=== PATIENT | female | born 1980 | race Caucasian/White ===

== ENCOUNTER 2025-05-03 01:13 | Emergency (ER) | payer OTHER ==
[~2025-05-03] VITALS: Ht 170.2 cm; Wt 82.0 kg
[2025-05-03] MEDS: EPINEPHrine HCL 0.5 ML NEB ONE (01:26)
[2025-05-03] MEDS: DexAMETHasone SOD PHOS 10MG/1ML VIAL INJ IV ONE (01:30)
[2025-05-03] MEDS: diphenhdrAMINE HCL 50 MG/1 ML VL IV ONE (01:30)
[2025-05-03] MEDS: FAMOTIDINE (10MG/ML) 2ML VL IV ONE (01:30)
--- NOTE | 2025-05-03 01:35 | ED.PDOC ---
SOB-HPI HPI Comments 44-year-old female who came to ER via EMS shortness a breath. Per EMS, patient is a poor informant. Patient was seen/picked up inside her car a she puller out is a for shortness a breath. Patient has an autoimmune disease, and she claims she has been intubated over 20 times. Complaining of sudden onset of shortness a breath, with wheezing. Possible allergic reaction. IO inserted, oxygen given via face mask, given epinephrine and Benadryl and breathing treatments. Patient saturating at 100% on face mask upon arrival. Chief Complaint: Shortness of breath Time Seen by MD: 01:35 Reviewed notes: Nurses Notes Information Source: Patient Mode of Arrival: Ambulatory Severity: Moderate Timing: Hours Duration: Since onset Context: At Rest, With Light Exertion PE Risk Factors: None History of: Anxiety Prehospital treatment: Breathing Tx, Oxygen, Treatment Modifying Factors: Nothing Associated Signs and Symptoms: Wheeze Past Medical History Past Medical History (Other): Autoimmune disease Surgical History: Unobtainable [employer] History: Unobtainable Family History Family History: Unobtainable Social History Smoker: Unobtainable Alcohol: Unobtainable Drugs: Unobtainable Lives In: Unobtainable Unable to Obtain due to: Medical Urgency, Other (In severe respiratory distress) Physical Exam General Appearance: No Apparent Distress, Normal HEENT: Normal ENT Inspection, Pharynx Normal, TMs Normal Neck: Full Range of Motion, Non-Tender, Normal, Normal Inspection Respiratory: Chest Non-Tender, Lungs Clear, No Accessory Muscle Use, No Respiratory Distress, Normal Breath Sounds Cardiovascular: No Edema, No JVD, No Murmur, No Gallop, Normal Peripheral Pulses, Regular Rate/Rhythm Breast Exam: Deferred Gastrointestinal: No Organomegaly, Non Tender, No Pulsatile Mass, Normal Bowel Sounds, Soft Genitalia: Deferred Pelvic: Deferred Rectal: Deferred Extremities: No calf tenderness, Normal capillary refill, Normal inspection, Normal range of motion, Non-tender, No pedal edema Musculoskeletal : Apperance: Normal Neurologic: Alert, reading instructor II-XII nml as Tested, No Motor Deficits, Normal Affect, Normal Mood, No Sensory Deficits Cerebellar Function: Normal Reflexes: Normal Skin: Dry, Normal Color, Warm Lymphatic: No Adenopathy Was a procedure done? Was a procedure done?: No Differential Dx Differential Diagnosis: Anxiety, Asthma, COPD, Hyperventilation, Myocardial infarction, Panic Attack, Pneumonia, Respiratory Distress X-Ray, Labs, Meds, VS Vital Signs Date Time Temp Pulse Resp B/P (MAP) Pulse Ox O2 Delivery O2 Flow Rate FiO2 05/03/25 02:13 130 24 100 Simple Mask* 10 99 05/03/25 01:59 98.7 130 24 155/89 (111) 100 98.7 05/03/25 01:38 123 05/03/25 01:22 26 97 Room Air* 0 21 05/03/25 01:13 98.1 135 32 156/94 (114) 100 98.1 Lab Test 05/03/25 05:07 05/03/25 03:05 05/03/25 01:50 05/03/25 01:47 Range/Units Blood Gas Specimen Type Venous Venous Blood Gas Sample Site Vbg - n/a Vbg - n/a Blood Gas Patient Temperature 37.0 37.0 Arterial Blood Date Drawn [id number] Gal Test N/a N/a Venous Blood pH 7.333 7.290 L 7.320-7.430 Venous Blood pCO2 at Patient Temp 33.1 L 30.4 L 38.0-54.0 mmHg Venous Blood pO2 at Patient Temp 52.4 H 47.4 23.0-48.0 mmHg Venous Blood HCO3 17.2 L 14.3 L 22.0-29.0 mmol/L Venous Blood Base Excess -7.6 L -10.8 L -2.0-3.0 mmol/L Blood Gas Modality Room air Room air FiO2 % 21.0 21.0 Troponin I High Sensitivity 4 < 3 L </=34 ng/L White Blood Count 11.5 H 4.4-10.8 10^3/uL Red Blood Count 4.60 4.0-5.20 10^6/uL Hemoglobin 14.2 12.2-16.2 g/dL Hematocrit 42.5 36.0-46.0 % Mean Corpuscular Volume 92.4 80.0-100.0 fL Mean Corpuscular Hemoglobin 30.8 28.0-32.0 pg Mean Corpuscular Hemoglobin Concent 33.4 32.0-36.0 g/dL Red Cell Distribution Width 13.6 11.8-14.3 % Platelet Count 304 140-450 10^3/uL Mean Platelet Volume 9.1 6.9-10.8 fL Neutrophils (%) (Auto) 47.7 37.0-80.0 % Lymphocytes (%) (Auto) 45.5 10.0-50.0 % Monocytes (%) (Auto) 5.6 0.0-12.0 % Eosinophils (%) (Auto) 0.8 0.0-7.0 % Basophils (%) (Auto) 0.4 0.0-2.0 % Neutrophils # (Auto) 5.5 1.6-8.6 10 ^3/uL Lymphocytes # (Auto) 5.2 0.4-5.4 10 ^3/uL Monocytes # (Auto) 0.6 0-1.3 10 ^3/uL Eosinophils # (Auto) 0.1 0-0.8 10 ^3/uL Basophils # (Auto) 0 0-0.2 10 ^3/uL Nucleated Red Blood Cells 0.2 % Sodium Level 140 136-145 mmol/L Potassium Level 2.5 *L 3.5-5.1 mmol/L Chloride Level 106 98-107 mmol/L Carbon Dioxide Level 15 L 20-31 mmol/L Anion Gap 19 H 5-15 Blood Urea Nitrogen < 5 L 9-23 mg/dL Creatinine 0.85 0.550-1.02 mg/dL Glomerular Filtration Rate Calc 87 >90 mL/min BUN/Creatinine Ratio 5.9 L 10.0-20.0 Serum Glucose 191 H 74-106 mg/dL Calcium Level 8.7 8.7-10.4 mg/dL Total Bilirubin 0.4 0.2-1.0 mg/dL Aspartate Amino Transferase (AST) 25 <34 U/L Alanine Aminotransferase (ALT) 34 7-40 U/L Alkaline Phosphatase 60 46-116 U/L B-Type Natriuretic Peptide 9.62 0-100 pg/mL Total Protein 7.5 5.7-8.2 g/dL Albumin 5.0 H 3.2-4.8 g/dL Current Medications Medications (Trade) Dose Ordered Sig/Peace Route Start Time Stop Time Status Last Admin Diphenhydramine HCl (Benadryl Injection) 50 mg ONCE ONCE IV 05/03/25 01:30 05/03/25 01:31 DC 05/03/25 01:30 Famotidine (Pepcid Injection) 20 mg ONCE ONCE IV 05/03/25 01:30 05/03/25 01:31 DC 05/03/25 01:30 Dexamethasone Sodium Phosphate (Decadron Injection) 10 mg ONCE ONCE IV 05/03/25 01:30 05/03/25 01:31 DC 05/03/25 01:30 Potassium Chloride 100 ml @ 50 mls/hr ONCE ONCE IV 05/03/25 02:45 05/03/25 04:14 DC 05/03/25 02:57 Potassium Chloride (Klor-Con Tablet) 40 meq ONCE ONCE PO 05/03/25 04:15 05/03/25 04:16 DC 05/03/25 04:32 Examination: CXRP Clinical Indication: Shortness of breath. Comparison: None. Technique: Frontal radiograph of the chest was obtained. Findings: Patient is in rotation. Lungs are clear and well expanded with no pulmonary infiltrate or pleural effusion. There is no pneumothorax. No evidence of cardiomegaly. No acute osseous abnormality is seen. IMPRESSION: No acute cardiopulmonary disease is seen. Time of 1ST Reevaluation: 01:24 Reevaluation 1ST: Unchanged Consultation: Other ([facility] authorization [id number]) Patient Education/Counseling: Diagnosis, Treatment Family Education/Counseling: No Family Present Departure 1 Departure Time of Disposition: 03:30 Impression: Primary Impression: Allergic reaction Disposition: 02 SHORT TERM HOSPITAL (Patient transferred to [facility]) Condition: Guarded Discharged With: Self Critical Care Note Critical Care Time?: Yes (35 min-critical care time only) Critical care comment: Shortness a breath Stability Stability form required: No Heart Score Heart Score: Heart Score Response (Comments) Value History N/A 0 EKG N/A 0 Age N/A 0 Risk Factors N/A 0 Troponin N/A 0 Total 0 I personally scribed for ALHAJI GORDILLO MD ([email or web address]) on 05/03/25 at 01:35. Electronically submitted by Александр Chappell ([email or web address]). I personally scribed for ALHAJI GORDILLO MD ([email or web address]) on 05/03/25 at 03:51. Electronically submitted by Александр Chappell ([email or web address]). ALHAJI GORDILLO MD May 03, 2025 01:35
[2025-05-03] MEDS: EPINEPHrine HCL 0.5 ML NEB NEB ONE (01:59)
[2025-05-03 02:13] VITALS: PULSE 130; RESP 24; O2SAT 100
[2025-05-03 02:25] LABS: Basophils # (auto) 0 10 ^3/uL (0-0.2); Basophils % (auto) 0.4 % (0.0-2.0); Eosinophils # (auto) 0.1 10 ^3/uL (0-0.8); Eosinophils % (auto) 0.8 % (0.0-7.0); Hematocrit 42.5 % (36.0-46.0); Hemoglobin 14.2 g/dL (12.2-16.2); Lymphocytes # (auto) 5.2 10 ^3/uL (0.4-5.4); Lymphocytes % (auto) 45.5 % (10.0-50.0); Mean Corpuscular Hemoglobin 30.8 pg (28.0-32.0); Mean Corpuscular Hgb Conc. 33.4 g/dL (32.0-36.0); Mean Corpuscular Volume 92.4 fL (80.0-100.0); Monocytes # (auto) 0.6 10 ^3/uL (0-1.3); Monocytes % (auto) 5.6 % (0.0-12.0); Neutrophils # (auto) 5.5 10 ^3/uL (1.6-8.6); Neutrophils % (auto) 47.7 % (37.0-80.0); Nucleated Red Blood Cells % 0.2 %; Platelet Count (auto) 304 10^3/uL (140-450); Red Cell Distribution Width 13.6 % (11.8-14.3); White Blood Cell 11.5 10^3/uL (4.4-10.8)
[2025-05-03 02:40] LABS: Alanine Aminotransferase 34 U/L (7-40); Alkaline Phosphatase 60 U/L (46-116); Anion Gap 19 (5-15); Aspartate Aminotransferase 25 U/L (<34); Chloride 106 mmol/L (98-107); Sodium 140 mmol/L (136-145); Total Protein 7.5 g/dL (5.7-8.2)
[2025-05-03 02:41] LABS: BUN/Creatinine Ratio 5.9 (10.0-20.0); Bilirubin, Total 0.4 mg/dL (0.2-1.0); Blood Urea Nitrogen < 5 mg/dL (9-23); Calcium 8.7 mg/dL (8.7-10.4); Carbon Dioxide 15 mmol/L (20-31); Glucose 191 mg/dL (74-106)
[2025-05-03 02:42] LABS: Potassium 2.5 mmol/L (3.5-5.1)
[2025-05-03] MEDS: POTASSIUM CHL 20MEQ/100ML 100 ML IV ONE (02:57)
--- NOTE | 2025-05-03 03:46 | DVH ---
Examination: CXRP Clinical Indication: Shortness of breath. Comparison: None. Technique: Frontal radiograph of the chest was obtained. Findings: Patient is in rotation. Lungs are clear and well expanded with no pulmonary infiltrate or pleural effusion. There is no pneumothorax. No evidence of cardiomegaly. No acute osseous abnormality is seen. IMPRESSION: No acute cardiopulmonary disease is seen. Electronically Signed 05/03/2025 03:45 Claudia Churchill
[2025-05-03] MEDS: POTASSIUM CHL 20 Meq TABLET PO ONE (04:32)
[2025-05-03 05:55] LABS: Potassium 3.9 mmol/L (3.5-5.1)
[2025-05-03 05:56] LABS: Anion Gap 15 (5-15); Calcium 9.2 mg/dL (8.7-10.4); Carbon Dioxide 19 mmol/L (20-31); Chloride 115 mmol/L (98-107); Sodium 149 mmol/L (136-145)
[2025-05-03 06:01] LABS: BUN/Creatinine Ratio 7.9 (10.0-20.0)
[2025-05-03 06:02] LABS: Blood Urea Nitrogen 6 mg/dL (9-23); Glucose 107 mg/dL (74-106)
[2025-05-03 07:30] VITALS: PULSE 92; RESP 12; O2SAT 98
--- NOTE | 2025-05-03 07:49 | ED.PDOC ---
Departure 1 Departure Time of Disposition: 07:48 (Patient's lab abnormalities resolved. Patient is feeling well with normal vitals and clear lungs and would like to go home. Will discharge patient home with outpatient follow up. ) Impression: Primary Impression: Allergic reaction Qualified Codes: T78.40XA - Allergy, unspecified, initial encounter Disposition: HOME / SELF CARE / HOMELESS Condition: Stable Additional Instructions: It is important to follow up with your regular doctor this week and ensure you are doing well. Discharged With: Self PAPO GEE MD May 03, 2025 07:49
[2025-05-03 07:52] VITALS: BP 105/51; PULSE 92; RESP 12; TEMP 97.9; O2SAT 98
== END 2025-05-03 08:12 | disposition home or self-care (01) ==
LOC: EDBD 01:13 → ER 01:13
DX: T78.40XA Allergy, unspecified, initial encounter (principal); X58.XXXA Exposure to other specified factors, initial encounter
CPT/HCPCS: 36415; 36600; 71045; 80048; 80053; 82805; 83880; 84484; 85025; 94640; 96361; 96374; 96375; 99285; J3480